=== PATIENT | male | born 1985 | race Caucasian/White ===

== ENCOUNTER 2018-11-04 22:13 | Emergency (ER) | payer OTHER ==
[~2018-11-04] VITALS: Ht 185.4 cm; Wt 59.0 kg
[2018-11-05 00:20] LABS: ABSOLUTE NEUTROPHILS 4.6 thou/uL (1.4-8.2); BASOPHILS 0.9 % (0.0-2.0); EOSINOPHILS 3.8 % (0.0-3.0); HEMATOCRIT 40.9 % (42.0-52.0); HEMOGLOBIN 13.9 gm/dL (14.0-18.0); LYMPHOCYTES 23.4 % (24.0-44.0); MCH 31.9 pg (26.0-34.0); MCHC 33.9 g/dL (28.0-37.0); MCV 94.2 fL (80.0-100.0); MONOCYTES 8.8 % (1.0-8.0); PLATELET COUNT 220 thou/uL (150-400); POLYS 63.1 % (36.0-66.0); RBC 4.34 mil/uL (4.50-6.00); RDW 13.1 % (10.5-14.5); WBC 7.3 thou/uL (4.0-11.0)
[2018-11-05 00:29] LABS: CALCIUM 8.9 mg/dL (8.5-10.1); CREATININE 0.7 mg/dL (0.7-1.3); POTASSIUM 3.7 mmol/L (3.5-5.1)
[2018-11-05] MEDS ORDERED: CLEOCIN HCL150 MG PO (01:14)
[2018-11-05 05:45] VITALS: BP 126/68
== END 2018-11-05 05:45 | disposition home or self-care (01) ==
LOC: ER 22:13
PROVIDERS: Emergency Medicine
DX: K04.7 Periapical abscess without sinus (principal); F17.210 Nicotine dependence, cigarettes, uncomplicated

== ENCOUNTER 2020-11-19 00:36 | Emergency (ER) | payer OTHER ==
[~2020-11-19] VITALS: Ht 185.4 cm; Wt 61.2 kg
[~2020-11-19 00:36] MED LIST: CLEOCIN HCL150 MG PO
[2020-11-19 00:38] VITALS: BP 147/105
[2020-11-19] MEDS ORDERED: ADDERALL XR 3030 MG (00:43)
[2020-11-19] MEDS ORDERED: AMOXICILLIN875 MG PO (01:07)
[2020-11-19] MEDS ORDERED: PERIDEX 0.12%473 M1 SW&SWALLOW (01:07)
== END 2020-11-19 01:08 | disposition home or self-care (01) ==
LOC: ER 00:36
DX: K02.9 Dental caries, unspecified (principal); F17.210 Nicotine dependence, cigarettes, uncomplicated; Z79.899 Other long term (current) drug therapy; Z91.010 Allergy to peanuts

== ENCOUNTER 2020-11-30 18:47 | Emergency (ER) | payer OTHER ==
[~2020-11-30] VITALS: Ht 185.4 cm; Wt 60.8 kg
[~2020-11-30 18:47] MED LIST changes: +ADDERALL XR 3030 MG; +AMOXICILLIN875 MG PO; +PERIDEX 0.12%473 M1 SW&SWALLOW
[2020-11-30 20:59] VITALS: BP 123/78
== END 2020-11-30 20:59 ==
LOC: ER 18:47
DX: T23.201A Burn of second degree of right hand, unspecified site, initial encounter (principal); T23.202A Burn of second degree of left hand, unspecified site, initial encounter; S60.311A Abrasion of right thumb, initial encounter; F17.210 Nicotine dependence, cigarettes, uncomplicated; Z91.010 Allergy to peanuts; X08.8XXA Exposure to other specified smoke, fire and flames, initial encounter; Y93.89 Activity, other specified; Y92.89 Other specified places as the place of occurrence of the external cause; Y99.8 Other external cause status

== ENCOUNTER 2021-03-06 01:19 | Emergency (ER) | payer OTHER | END 2021-03-06 02:28 | disposition left against medical advice (07) | LOC: ER 01:19 | DX: R06.02 Shortness of breath (principal); Z53.21 Procedure and treatment not carried out due to patient leaving prior to being seen by health care provider ==